=== PATIENT | male | born 1955 | race Caucasian/White ===

== ENCOUNTER 2022-06-10 07:48 | Emergency (ER) | payer MEDICARE, BC ==
[~2022-06-10] VITALS: Ht 188 cm; Wt 108.9 kg
[2022-06-10 08:08] VITALS: BP 145/89
[2022-06-10] MEDS ORDERED: METF500 PO (08:15)
[2022-06-10 08:23] LABS: Source, Urine Clean Catch
[2022-06-10 08:28] LABS: Appearance, Urine Clear (Clear); Bilirubin, Urine Neg (Neg); Blood, Urine 4+ (Neg); Color, Urine Yellow (P-Yellow); Glucose Qualitative, Urine Neg (Neg); Ketones, Urine Neg (Neg); Leukocyte Esterase, Urine 3+ (Neg); Nitrite, Urine Neg (Neg); Protein, Urine 1+ (Neg); Urobilinogen, Urine NORM (Normal)
[2022-06-10 08:51] LABS: Bacteria Mod /hpf; Squamous Epithelial Cells Few /hpf (Few); White Blood Cells, Urine 25-50 /hpf (0-5)
[2022-06-10] MEDS ORDERED: CEPH500 PO (08:57)
== END 2022-06-10 09:05 | disposition home or self-care (01) ==
LOC: ER 07:48
PROVIDERS: Emergency Medicine
DX: N39.0 Urinary tract infection, site not specified (principal); N40.1 Benign prostatic hyperplasia with lower urinary tract symptoms; R35.1 Nocturia; Z88.2 Allergy status to sulfonamides; Z79.84 Long term (current) use of oral hypoglycemic drugs; Z87.891 Personal history of nicotine dependence; R33.8 Other retention of urine; R30.0 Dysuria
CPT/HCPCS: 51702; 51798; 81001; 87077; 87086; 87186; 99283; 99283-25